=== PATIENT | female | born 2000 | race Two or more races ===

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

== ENCOUNTER 2025-02-26 11:31 | Outpatient (CLI) | payer MEDICAID ==
[2025-02-26 12:37] LABS: Hematocrit 36.4 % (36.0-46.0); Hemoglobin 12.9 g/dL (12.2-16.2); Mean Corpuscular Hemoglobin 29.8 pg (28.0-32.0); Mean Corpuscular Volume 84.3 fL (80.0-100.0); Nucleated Red Blood Cells % 0.0 %
[2025-02-26 13:24] LABS: Alanine Aminotransferase 20 U/L (7-40); Albumin 4.3 g/dL (3.2-4.8); Alkaline Phosphatase 62 U/L (46-116); Anion Gap 10 (5-15); Bilirubin, Total 0.3 mg/dL (0.2-1.0); Calcium 9.3 mg/dL (8.7-10.4); Carbon Dioxide 22 mmol/L (20-31); Chloride 103 mmol/L (98-107); Glucose 92 mg/dL (74-106); Potassium 3.6 mmol/L (3.5-5.1)
[2025-02-26 13:27] LABS: Sodium 135 mmol/L (136-145); Thyroid Stimulating Hormone 1.61 uIU/mL (0.55-4.78)
[2025-02-26 13:30] LABS: BUN/Creatinine Ratio 12.2 (10.0-20.0); Blood Urea Nitrogen < 5 mg/dL (9-23); Total Protein 7.7 g/dL (5.7-8.2)
[2025-03-01 06:07] LABS: Chlamydia Trachomatis, NAA Negative (Negative); Neisseria gonorrhoeae, NAA Negative (Negative)
== END 2025-02-26 17:00 | disposition home or self-care (01) ==
LOC: LAB 11:31
PROVIDERS: ATTEND Obstetrics & Gynecology
DX: O23.41 Unspecified infection of urinary tract in pregnancy, first trimester (principal); N39.0 Urinary tract infection, site not specified; R10.20 Pelvic and perineal pain unspecified side; Z11.3 Encounter for screening for infections with a predominantly sexual mode of transmission; E28.2 Polycystic ovarian syndrome; Z3A.12 12 weeks gestation of pregnancy
CPT/HCPCS: 36415; 80053; 83036; 84439; 84443; 84702; 85025; 86480; 86703; 86762; 86780; 86787; 86850; 86900; 86901; 87086; 87340